=== PATIENT | male | born 1935 | race African-American/Black ===

== ENCOUNTER 2017-01-22 18:00 | Inpatient (IN) | payer OTHER ==
[~2017-01-22] VITALS: Ht 175.3 cm; Wt 55.8 kg
--- NOTE | ~2017-01-22 | HC ---
[facility] [place] [address] CONSULTATION Name: PATRICK GARCES Room #: 445-P ADM IN M.R.#: [id number] Admission: 01/22/17 Attend Phys: Elijah Nunez MD Discharge: Date of : 34 Report #: [id number] THIS REPORT FOR: //name// CC: Elijah Perez REASON FOR CONSULTATION: I was asked to evaluate concerning positive syphilis antibody. HISTORY OF PRESENT ILLNESS: The patient was an 81-year-old who presented with fever, myalgias, arthralgias and worsening mentation. Found to have influenza B. He has had occasional nonproductive cough. Chest x-ray showed left lower lobe infiltrate. Imaging studies of his brain showed no acute stroke. He had further workup of his dementia, B12 was normal, syphilis antibody positive. The patient denies any previous history of syphilis. No history of tuberculosis or HIV. 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 ALLERGIES: None known. MEDICATIONS: As noted on his MAR including Unasyn, Levaquin, Tamiflu. PAST MEDICAL HISTORY, FAMILY HISTORY AND SOCIAL HISTORY: Unchanged from his history and physical, which was reviewed. It is noted that he has had prostate cancer and the patient's family states dementia has been at least a year or so. REVIEW OF SYSTEMS: No nausea, vomiting, diarrhea, dysuria or frequency, rash, decubiti. PHYSICAL EXAMINATION: VITAL SIGNS: Afebrile, hemodynamically stable. GENERAL: He is alert, cooperative and pleasant. He was sitting up in his chair, overall weak. HEENT: Unremarkable. NECK: Supple, no adenopathy. LUNGS: Few crackles in the left base posteriorly. HEART: Regular, without murmur. ABDOMEN: Soft, nontender, no hepatosplenomegaly or mass. EXTREMITIES: Unremarkable. He did have a midline incision to his abdomen from previous ventral hernia repair several years ago. LABORATORY STUDIES: Sodium 144, potassium 3.6, bicarbonate 28, creatinine 1, liver function test normal. Hemoglobin 10.3, white count 5.6, platelet count 123,000. Syphilis antibody positive. RPR was negative. B12 normal. Urinalysis, moderate rbc's. Influenza B antigen positive. Chest x-ray: Left lower lobe patchy infiltrate. MRI scan of the brain, no acute changes. CT scan [address] [address] CONSULTATION Name: PATRICK GARCES Room #: 445-P ADM IN M.R.#: [id number] Admission: 01/22/17 Attend Phys: Elijah Nunez MD Discharge: Date of : 34 Report #: [id number] of his chest, abdomen and pelvis, left lower lobe infiltrate, extensive stool throughout the colon, renal cyst. Bladder diverticulum. IMPRESSION AND PLAN: An 81-year-old with influenza B and left lower lobe infiltrate. Has an ongoing dementia. Syphilis antibody is positive, although RPR is negative. This is either a false positive or previously treated illness. No evidence of syphilis suspected at this time. If any further changes occur, I would agree neurology that CSF examination would be the next test to pursue. Therefore, recommend no specific treatment for the syphilis antibody positive. Complete 5 days of Tamiflu for his influenza. Would be reasonable to switch to Augmentin for possible secondary bacterial pneumonia. <ELECTRONICALLY SIGNED> By: Javi Waddell MD 01/27/172012 1209 1429 Javi Waddell MD /nt
--- NOTE | ~2017-01-22 | EKG ---
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
--- NOTE | ~2017-01-22 | HC ---
[facility] [place] [address] CONSULTATION Name: PATRICK GARCES Room #: 445-P [facility] IN M.R.#: [id number] Admission: 01/22/17 Attend Phys: Elijah Nunez MD Discharge: 01/28/17 Date of : 34 Report #: [id number] THIS REPORT FOR: //name// CC: Elijah Perez HISTORY OF PRESENT ILLNESS: The patient is an 81-year-old male who was admitted with fever up to 102.4 and left-sided weakness. He was noted to have a left lower lobe infiltrate. CT scan showed an old lacunar infarct. He was diagnosed with a community-acquired pneumonia. He was placed on IV antibiotics. He also was noted to have influenza B. The patient was noted to have some dysphagia and is on a mechanical soft diet with nectar thickened liquids. Neurology saw him and he was diagnosed with an encephalopathy due to systemic infection. MRI showed no recent CVA. Family did not desire a lumbar puncture. We are seeing him now regarding rehabilitation issues. PAST MEDICAL HISTORY: Includes a prior CVA with some residual left-sided weakness. He is noted to have some advancing dementia and prostate cancer. HABITS: No history of tobacco or ETOH. SOCIAL HISTORY: Lives in a house with his . Premorbid cane or walker ambulator. One step in. He needed help with dressing. His daughter is noted to live close and comes by in the morning to help repair meals. Other family members come by in the evening to assist. REVIEW OF SYSTEMS: Did not offer any current complaints of chest pain, shortness of breath or abdominal discomfort. PHYSICAL EXAMINATION: GENERAL: An 81-year-old male, small statured and thin, somewhat confused, will follow some basic 1 step commands, definite latency to his responses. Facies appeared to be symmetric. EXTREMITIES: He does have some left-sided weakness, probably a grade 3+/5. Right upper extremity is probably a 3+ to 4-/5. Both lower extremities strength is probably a grade 4-/5. DTRs are trace to 1. I was unable to adequately assess sensation. He is mod assist with sit to stand and did ambulate 75 feet min assist with a front-wheeled walker. ASSESSMENT: An 81-year-old white male with the following problem list: 1. Encephalopathy, thought due to systemic infection. 2. Prior cardiovascular accident with some residual left-sided weakness. 3. Community-acquired pneumonia. 4. Rule out aspiration. He is currently on nectar thickened liquids. 5. Influenza B. 6. History of advancing dementia. 7. Prostate cancer. [address] [address] CONSULTATION Name: PATRICK GARCES Room #: [facility] IN M.R.#: [id number] Admission: 01/22/17 Attend Phys: Elijah Nunez MD Discharge: 01/28/17 Date of : 34 Report #: [id number] PLAN: Note that case management [place] [facility] [place] [facility] for this patient and family has already given their choices of facilities. In my impression, a [place] [facility] [place] stay would be an appropriate discharge plan for this patient. Thank you for asking us to assist in this patient's care. <ELECTRONICALLY SIGNED> By: Honorio Gray MD 01/28/17 1539 1323 1347 Honorio Gray MD /nt
--- NOTE | ~2017-01-22 | HC ---
[facility] [place] [address] CONSULTATION Name: PATRCIK GARCES Room #: 445-P [facility] IN M.R.#: [id number] Admission: 01/22/17 Attend Phys: Elijah Nunez MD Discharge: 01/28/17 Date of : 34 Report #: [id number] THIS REPORT FOR: //name// CC: Elijah Perez DATE OF SERVICE: 01/23/2017 HISTORY OF PRESENT ILLNESS: This is an 81-year-old male patient who was evaluated by me for altered mental status. The family gives a history that it started about 1 week ago. They noticed that he had more weakness on the left side and he was not able to respond very well. He was taken to [facility], but did not think they did much workup. The patient is weak on the baseline in the left side secondary to a stroke in July 2016. He did not get admitted to the hospital that time. This weakness has fluctuated some, but it became worst within last week. He is better today than when he came in. There was associated fever with these episodes, which is also better. There was no headache he complains of. The symptom has come in spontaneously without any trauma, etc. REVIEW OF SYSTEMS: Indicate that he is weak on the left side. He can feed himself, but he needs help with virtually all the other activities of daily living. He has been diagnosed with dementia that predates his history of stroke in July 2016. He does have a history of stroke as summarized above. His mentation is not very good to get a very good history from him, but he does have a history of dementia. He does have a history of hypertension and prostate cancer. I tried to see if he has any new eye, ENT, cardiac, respiratory, GI, , musculoskeletal, constitutional, dermatological, hematological, psychiatric, throat or allergic symptoms along with present symptomatology. I get a good history, but it does not look like he had too many new symptom except for more left-sided weakness and altered mental status. PAST MEDICAL HISTORY: Positive for stroke, but that diagnosis was on the basis of MRI. FAMILY HISTORY: Negative for early age stroke. SOCIAL HISTORY: He lives with his and requires a lot of care. PHYSICAL EXAMINATION: His examination is limited. He opens his eye. He does not know what month or year it is. His memory is severely affected, he is still able to talk, but his memory is affected given his baseline. Cranial nerve examination 2-12 was carried out and it is very difficult to carry out in this patient. The best I can tell, it looks mostly unremarkable, but I certain. He is weak on the left side, but family says moving better. He does not have any meningeal signs. His is a well-developed individual who does not have any [address] [place] [address] CONSULTATION Name: PATRICK GARCES Room #: 445-P [facility] IN M.R.#: [id number] Admission: 01/22/17 Attend Phys: Elijah Nunez MD Discharge: 01/28/17 Date of : 34 Report #: [id number] dysmorphic features of eyes, ears and face. His hearing and vision looks adequate. He does not have any thyroid mass, there does not appear to be any carotid bruit. His heart sounds are unremarkable. He has no edema, cyanosis or jaundice. He does not have pneumonia, but he does look like in too much aspirate distress. Blood pressure is 144/71, respirations 20, pulse is 89, temperature is 99.4, which actually is better. LABORATORY DATA: Indicate a white count of 7.3. His CT scan of the head was done on admission, which showed old stroke. His MRI is pending. IMPRESSION: This patient's clinical presentation is consistent with encephalopathy caused by systemic infection. 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 The possibility of stroke cannot be fully excluded at this stage till the further workup is done. RECOMMENDATION: I discussed the situation with the family. we will await the MRI. I discussed spinal tap with them. Presently, they will not like to proceed with spinal tap and wait to see if the patient becomes better and if he does not then they will reconsider it. We will get an EEG, get TSH, vitamin B12 and review the MRI when it is done assuming he is able to cooperate. Thank you very much for this referral. <ELECTRONICALLY SIGNED> By: Cam Reynolds MD 01/28/17 1926 1308 1513 Cam Reynolds MD /nt
--- NOTE | ~2017-01-22 | EEG ---
[facility] [place] [address] ELECTROENCEPHALOGRAM Name: PATRICK GARCES Room #: 445-P [facility] IN M.R.#: [id number] Admission: 01/22/17 Attend Phys: Elijah Nunez MD Discharge: 01/28/17 Date of : 34 Report #: [id number] THIS REPORT FOR: //name// CC: Elijah Klein Chris DATE OF SERVICE: 01/23/2017 This patient is being evaluated for altered mental status. EEG was done by placing the electrodes by standard 10-20 system of electrode placement. Both referential and sequential montages were used for recording. Background activity in this patient's EEG is about 6-7 Hz and 30 microvolts. It is intermixed with theta range slowing on both sides. The patient went to sleep that is associated with bilaterally symmetrical sleep spindle and vertex sharp waves. Throughout the record, no active epileptiform activity was noticed. IMPRESSION: This patient's EEG demonstrates theta range slowing on both sides. That is a nonspecific abnormality, which can occur with encephalopathy, effect of psychotropic medication, dementia, etc. Clinical correlation is recommended. Thank you very much for this referral. <ELECTRONICALLY SIGNED> By: Cam Reynolds MD 01/28/17 1930 1821 21 Cam Reynolds MD /nt
[2017-01-22 18:02] VITALS: BP 141/82
[2017-01-22] MEDS ORDERED: LASIX 20 MG TAB20 MG PO (18:33)
[2017-01-22] MEDS ORDERED: ARICEPT 5 MG TAB5 MG PO (18:33)
[2017-01-22] MEDS ORDERED: CLARITIN10 MG PO (18:33)
[2017-01-22] MEDS ORDERED: SEROQUEL 25 MG25 MG PO (18:34)
[2017-01-22] MEDS ORDERED: BAYER CHEWABLE81 MG PO (18:34)
[2017-01-22] MEDS ORDERED: NAMENDA 5 MG TAB5 M1 PO (18:34)
[2017-01-22] MEDS ORDERED: NORVASC5 MG PO (18:34)
[2017-01-22 18:53] LABS: ABSOLUTE NEUTROPHILS 7.4 thou/uL (1.4-8.2); BASOPHILS 0.2 % (0.0-2.0); HEMATOCRIT 39.9 % (42.0-52.0); HEMOGLOBIN 13.4 gm/dL (14.0-18.0); LYMPHOCYTES 12.9 % (24.0-44.0); MCH 29.8 pg (26.0-34.0); MCHC 33.6 g/dL (28.0-37.0); MCV 88.7 fL (80.0-100.0); MONOCYTES 9.9 % (1.0-8.0); PLATELET COUNT 150 thou/uL (150-400); RDW 14.4 % (10.5-14.5); WBC 9.6 thou/uL (4.0-11.0)
[2017-01-22 18:54] LABS: MANUAL DIFF NO
[2017-01-22 18:55] LABS: ANION GAP 5 mmol/L (7-16); BUN 19 mg/dL (7-18); CHLORIDE 102 mmol/L (98-107); CO2 27 mmol/L (21-32); CREATININE 1.3 mg/dL (0.6-1.3); GLUCOSE 106 mg/dL (70-99); POTASSIUM 4.6 mmol/L (3.5-5.1); SODIUM 134 mmol/L (136-145)
[2017-01-22 19:06] LABS: ALKALINE PHOSPHATASE 69 U/L (46-116); NT-PRO BRAIN NAT PEPTIDE 509 pg/mL (<300); SGOT 33 U/L (15-37); SGPT 21 U/L (30-65); TOTAL BILIRUBIN 0.5 mg/dL (<0.1-1.0); TOTAL PROTEIN 7.5 g/dL (6.4-8.2); TROPONIN-I < 0.04 ng/mL (<0.04-0.07)
[2017-01-22 19:44] LABS: URINE BILIRUBIN NEGATIVE (Negative); URINE BLOOD 3+ (Negative); URINE COLOR YELLOW; URINE GLUCOSE-RANDOM* NEGATIVE (Negative); URINE KETONES NEGATIVE (Negative); URINE LEUKOCYTES-REFLEX NEGATIVE (Negative); URINE PROTEIN (DIPSTICK) TRACE (Negative)
[2017-01-22 19:50] LABS: SQUAMOUS 0-3 Few /LPF (0-3)
[2017-01-22 19:51] LABS: CASTS None Seen /LPF (None Seen); CRYSTALS None Seen /LPF (None Seen); URINE WBC-REFLEX 0-5 Rare /HPF (0-5)
[2017-01-22 21:23] VITALS: BP 127/61
[2017-01-22 21:45] VITALS: BP 137/67
[2017-01-22 23:20] VITALS: BP 126/66
[2017-01-23 04:53] LABS: HEMATOCRIT 33.7 % (42.0-52.0); MCH 29.4 pg (26.0-34.0); MCHC 32.7 g/dL (28.0-37.0); MCV 89.9 fL (80.0-100.0); RBC 3.75 mil/uL (4.50-6.00); RDW 14.4 % (10.5-14.5); WBC 7.3 thou/uL (4.0-11.0)
[2017-01-23 05:02] LABS: CALCIUM 8.3 mg/dL (8.5-10.1); CREATININE 1.2 mg/dL (0.6-1.3); POTASSIUM 3.5 mmol/L (3.5-5.1)
[2017-01-23 05:08] LABS: HDL CHOLESTEROL 70 mg/dL (>40); TRIGLYCERIDE 36 mg/dL (<150); VLDL 7 mg/dL (<40)
[2017-01-23 05:48] LABS: CHOLESTEROL 151 mg/dL (<200); LDL CHOLESTEROL 74 mg/dL (<100); SERUM ASSESSMENT Clear; TC:HDL 2.2 Ratio (Not establshd)
[2017-01-23 05:54] VITALS: BP 155/78
[2017-01-23 08:00] VITALS: BP 144/71
[2017-01-23 12:00] VITALS: BP 169/85
[2017-01-23 16:00] VITALS: BP 159/78
[2017-01-23 19:08] VITALS: BP 148/87
[2017-01-24 01:05] LABS: GLYCOHEMOGLOBIN (HGB A1C) 5.7 % (4.8-5.6)
[2017-01-24 04:55] VITALS: BP 140/84
[2017-01-24 06:09] LABS: HEMATOCRIT 34.5 % (42.0-52.0); HEMOGLOBIN 11.4 gm/dL (14.0-18.0); MCH 29.1 pg (26.0-34.0); MCHC 32.9 g/dL (28.0-37.0); MCV 88.5 fL (80.0-100.0); PLATELET COUNT 139 thou/uL (150-400); WBC 11.9 thou/uL (4.0-11.0)
[2017-01-24 06:28] LABS: MANUAL DIFF YES
[2017-01-24 06:29] LABS: ALBUMIN 2.4 g/dL (3.4-5.0); CALCIUM 8.7 mg/dL (8.5-10.1); POTASSIUM 3.4 mmol/L (3.5-5.1); TOTAL BILIRUBIN 0.4 mg/dL (<0.1-1.0); TOTAL PROTEIN 6.3 g/dL (6.4-8.2)
[2017-01-24 08:42] LABS: ABSOLUTE NEUTROPHILS 10.1 thou/uL (1.4-8.2); TOTAL CELL COUNT 100
[2017-01-24 08:43] LABS: ANISOCYTOSIS SLIGHT
[2017-01-24 08:44] LABS: OVALOCYTES FEW
[2017-01-24 09:33] VITALS: BP 166/74
[2017-01-24 16:00] VITALS: BP 182/79
[2017-01-25 05:26] VITALS: BP 154/76
[2017-01-25 05:37] LABS: ABSOLUTE NEUTROPHILS 4.1 thou/uL (1.4-8.2); BASOPHILS 0.2 % (0.0-2.0); EOSINOPHILS 0.1 % (0.0-3.0); HEMATOCRIT 30.5 % (42.0-52.0); HEMOGLOBIN 10.3 gm/dL (14.0-18.0); LYMPHOCYTES 14.8 % (24.0-44.0); MCH 29.6 pg (26.0-34.0); MCHC 33.6 g/dL (28.0-37.0); MONOCYTES 10.8 % (1.0-8.0); PLATELET COUNT 123 thou/uL (150-400); POLYS 74.1 % (36.0-66.0); RBC 3.47 mil/uL (4.50-6.00); RDW 14.4 % (10.5-14.5); WBC 5.6 thou/uL (4.0-11.0)
[2017-01-25 05:59] LABS: MANUAL DIFF NO
[2017-01-25 06:07] LABS: CALCIUM 8.2 mg/dL (8.5-10.1)
[2017-01-25 06:12] LABS: POTASSIUM 2.8 mmol/L (3.5-5.1)
[2017-01-25 08:00] VITALS: BP 150/73
[2017-01-25 13:26] VITALS: BP 143/88
[2017-01-25 15:07] VITALS: BP 157/72
[2017-01-25 19:23] VITALS: BP 166/96
[2017-01-25 19:23] LABS: TSH 0.805 uIU/mL (0.358-3.740)
[2017-01-26 04:33] VITALS: BP 168/85
[2017-01-26 07:41] VITALS: BP 168/95
[2017-01-26 12:30] VITALS: BP 136/80
[2017-01-26 15:11] VITALS: BP 133/84
[2017-01-26 19:35] VITALS: BP 134/77
[2017-01-27 05:06] VITALS: BP 186/95
[2017-01-27 08:00] VITALS: BP 175/100
[2017-01-27 12:00] VITALS: BP 144/83
[2017-01-27] MEDS ORDERED: AUGMENTIN 875875 MG PO (12:21)
[2017-01-27] MEDS ORDERED: TAMIFLU30 MG PO (12:21)
[2017-01-27] MEDS ORDERED: DUONEB 2.5-0.5 M3 ML INH (12:21)
[2017-01-27] MEDS ORDERED: LEVAQUIN 500 M500 M1 PO (12:21)
[2017-01-27 16:00] VITALS: BP 149/98
[2017-01-27 20:00] VITALS: BP 161/65
[2017-01-28 03:30] VITALS: BP 142/84
[2017-01-28 05:30] VITALS: BP 164/96
[2017-01-28 08:00] VITALS: BP 146/100
== END 2017-01-28 11:23 | DRG 871 ==
LOC: ER 18:00 → EROBS 20:55 → 4S 20:55
PROVIDERS: Emergency Medicine; Family Medicine; Nurse Practitioner; Nurse Practitioner Family; Psychiatry & Neurology Neuromuscular Medicine
DX: A41.9 Sepsis, unspecified organism (principal); J10.08 Influenza due to other identified influenza virus with other specified pneumonia; G93.40 Encephalopathy, unspecified; E44.1 Mild protein-calorie malnutrition; I69.954 Hemiplegia and hemiparesis following unspecified cerebrovascular disease affecting left non-dominant side; Z68.1 Body mass index [BMI] 19.9 or less, adult; I10 Essential (primary) hypertension; A53.9 Syphilis, unspecified; F03.90 Unspecified dementia, unspecified severity, without behavioral disturbance, psychotic disturbance, mood disturbance, and anxiety; K59.00 Constipation, unspecified; Z79.899 Other long term (current) drug therapy; Z85.46 Personal history of malignant neoplasm of prostate; J11.1 Influenza due to unidentified influenza virus with other respiratory manifestations
CPT/HCPCS: 10100

== ENCOUNTER 2017-02-02 13:18 | Inpatient (IN) | payer OTHER ==
[~2017-02-02] VITALS: Ht 170.2 cm; Wt 61.2 kg
--- NOTE | ~2017-02-02 | EEG ---
[facility] [place] [address] ELECTROENCEPHALOGRAM Name: PATRICK GARCES Room #: 445-P [facility] IN M.R.#: [id number] Admission: 02/02/17 Attend Phys: Mauro Retana Discharge: 02/03/17 Date of : 34 Report #: [id number] THIS REPORT FOR: //name// CC: Mauro Perez The patient is an 81-year-old male with altered mental status and syncope. An EEG is requested for further evaluation. DESCRIPTION: The awake record consists of symmetric moderate amplitude 7 cycle per second posterior dominant rhythm. The awake record is obscured by muscle artifact. Stage I sleep is characterized by attenuation of the background record. Photic stimulation is nonactivating. No clear focal abnormalities or epileptiform discharges are noted. IMPRESSION: This is an abnormal adult awake record because of mild slowing of the posterior dominant rhythm. This is a nonspecific finding and may be seen if the patient is not fully awake or if the patient is encephalopathic or has an underlying dementia. No focal abnormalities or epileptiform discharges are noted. <ELECTRONICALLY SIGNED> By: Ginny Morton DO 02/08/17 1110 1232 1445 Ginny Morton DO /nt
--- NOTE | ~2017-02-02 | EKG ---
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
[~2017-02-02 13:18] MED LIST: ARICEPT 5 MG TAB5 MG PO; AUGMENTIN 875875 MG PO; BAYER CHEWABLE81 MG PO; CLARITIN10 MG PO; DUONEB 2.5-0.5 M3 ML INH; LASIX 20 MG TAB20 MG PO; LEVAQUIN 500 M500 M1 PO; NAMENDA 5 MG TAB5 M1 PO; NORVASC5 MG PO; SEROQUEL 25 MG25 MG PO; TAMIFLU30 MG PO
[2017-02-02 13:19] VITALS: BP 133/79
[2017-02-02 13:51] LABS: ABSOLUTE NEUTROPHILS 6.5 thou/uL (1.4-8.2); BASOPHILS 0.6 % (0.0-2.0); EOSINOPHILS 0.7 % (0.0-3.0); HEMATOCRIT 35.2 % (42.0-52.0); HEMOGLOBIN 11.6 gm/dL (14.0-18.0); LYMPHOCYTES 12.9 % (24.0-44.0); MCH 28.9 pg (26.0-34.0); MCHC 32.9 g/dL (28.0-37.0); MCV 87.6 fL (80.0-100.0); MONOCYTES 7.4 % (1.0-8.0); PLATELET COUNT 388 thou/uL (150-400); POLYS 78.4 % (36.0-66.0); RBC 4.02 mil/uL (4.50-6.00); RDW 14.1 % (10.5-14.5); WBC 8.3 thou/uL (4.0-11.0)
[2017-02-02 13:53] LABS: MANUAL DIFF NO
[2017-02-02 13:57] LABS: CALCIUM 9.5 mg/dL (8.5-10.1); CREATININE 1.2 mg/dL (0.6-1.3); POTASSIUM 3.6 mmol/L (3.5-5.1)
[2017-02-02 14:38] LABS: URINE BILIRUBIN NEGATIVE (Negative); URINE BLOOD NEGATIVE (Negative); URINE COLOR YELLOW; URINE GLUCOSE-RANDOM* NEGATIVE (Negative); URINE KETONES NEGATIVE (Negative); URINE LEUKOCYTES-REFLEX NEGATIVE (Negative); URINE PROTEIN (DIPSTICK) NEGATIVE (Negative); URINE UROBILINOGEN 0.2 E.U./dl (0.2-1.0)
[2017-02-02 15:20] LABS: ABG SAMPLE TYPE ARTERIAL; BE(vivo) 1.8 mmol/L (-2 to +3); LACTATE 0.83 mmol/L (0.5-2.0); O2(CT) 16.2 mL/dL (15.0-23.0); O2Hb 93.4 % (92.0-98.0); PCO2 39.3 mmHg (35.0-45.0); PO2 73.2 mmHg (80.0-100.0); STICK SITE R.RADIAL; pH 7.439 (7.360-7.450); sO2 95.2 % (92.0-98.0); tCO2 27.2 mmol/L (24.0-30.0)
[2017-02-02 16:51] VITALS: BP 150/95
[2017-02-03 08:00] VITALS: BP 167/109
[2017-02-03] MEDS ORDERED: SEROQUEL 25 MG25 M1 PO (10:45)
[2017-02-03 16:00] VITALS: BP 143/87
== END 2017-02-03 18:29 | DRG 316 ==
LOC: ER 13:18 → EROBS 14:55 → 4S 14:55
PROVIDERS: Emergency Medicine
DX: I95.9 Hypotension, unspecified (principal); E86.0 Dehydration; I10 Essential (primary) hypertension; F03.90 Unspecified dementia, unspecified severity, without behavioral disturbance, psychotic disturbance, mood disturbance, and anxiety; Z86.73 Personal history of transient ischemic attack (TIA), and cerebral infarction without residual deficits; Z85.46 Personal history of malignant neoplasm of prostate; Z79.82 Long term (current) use of aspirin; Z79.899 Other long term (current) drug therapy
CPT/HCPCS: 10100

== ENCOUNTER 2017-02-04 11:06 | Emergency (ER) | payer OTHER ==
[~2017-02-04] VITALS: Ht 182.9 cm; Wt 65.8 kg
[~2017-02-04 11:06] MED LIST changes: +SEROQUEL 25 MG25 M1 PO
[2017-02-04 11:24] LABS: ABSOLUTE NEUTROPHILS 7.6 thou/uL (1.4-8.2); BASOPHILS 0.5 % (0.0-2.0); EOSINOPHILS 0.8 % (0.0-3.0); HEMOGLOBIN 11.5 gm/dL (14.0-18.0); MCH 28.9 pg (26.0-34.0); MCHC 32.8 g/dL (28.0-37.0); MCV 88.1 fL (80.0-100.0); MONOCYTES 7.8 % (1.0-8.0); PLATELET COUNT 411 thou/uL (150-400); POLYS 77.9 % (36.0-66.0); RBC 3.97 mil/uL (4.50-6.00); RDW 14.1 % (10.5-14.5); WBC 9.8 thou/uL (4.0-11.0)
[2017-02-04 11:28] LABS: MANUAL DIFF NO
[2017-02-04 11:35] LABS: CALCIUM 9.3 mg/dL (8.5-10.1); CREATININE 1.1 mg/dL (0.6-1.3); POTASSIUM 3.6 mmol/L (3.5-5.1)
[2017-02-04 12:48] LABS: URINE BILIRUBIN NEGATIVE (Negative); URINE BLOOD 2+ (Negative); URINE COLOR YELLOW; URINE GLUCOSE-RANDOM* NEGATIVE (Negative); URINE KETONES NEGATIVE (Negative); URINE NITRITE NEGATIVE (Negative); URINE PROTEIN (DIPSTICK) TRACE (Negative); URINE SPECIFIC GRAVITY 1.025 (1.003-1.035); URINE UROBILINOGEN 0.2 E.U./dl (0.2-1.0)
[2017-02-04 13:08] LABS: CASTS None Seen /LPF (None Seen); CRYSTALS None Seen /LPF (None Seen); SQUAMOUS 0-3 Few /LPF (0-3)
[2017-02-04 13:09] LABS: BACTERIA 1-9 Few /HPF (None Seen); URINE WBC 0-5 Rare /HPF (0-5)
== END 2017-02-04 12:39 | disposition home or self-care (01) ==
LOC: ER 11:06
PROVIDERS: Nurse Practitioner
DX: S09.90XA Unspecified injury of head, initial encounter (principal); I63.9 Cerebral infarction, unspecified; I10 Essential (primary) hypertension; F03.90 Unspecified dementia, unspecified severity, without behavioral disturbance, psychotic disturbance, mood disturbance, and anxiety; Z85.46 Personal history of malignant neoplasm of prostate; W06.XXXA Fall from bed, initial encounter; Y93.89 Activity, other specified; Y92.89 Other specified places as the place of occurrence of the external cause; Y99.9 Unspecified external cause status

== ENCOUNTER 2017-02-22 21:15 | Emergency (ER) | payer OTHER ==
[~2017-02-22] VITALS: Ht 172.7 cm; Wt 58.1 kg
[2017-02-22 21:45] LABS: URINE BILIRUBIN NEGATIVE (Negative); URINE BLOOD 3+ (Negative); URINE COLOR YELLOW; URINE GLUCOSE-RANDOM* NEGATIVE (Negative); URINE KETONES NEGATIVE (Negative); URINE LEUKOCYTES-REFLEX NEGATIVE (Negative); URINE PROTEIN (DIPSTICK) NEGATIVE (Negative)
[2017-02-22 21:52] LABS: ABSOLUTE NEUTROPHILS 3.8 thou/uL (1.4-8.2); BASOPHILS 0.6 % (0.0-2.0); EOSINOPHILS 7.1 % (0.0-3.0); HEMOGLOBIN 11.3 gm/dL (14.0-18.0); LYMPHOCYTES 23.8 % (24.0-44.0); MCH 29.5 pg (26.0-34.0); MCHC 33.1 g/dL (28.0-37.0); MCV 89.2 fL (80.0-100.0); MONOCYTES 9.3 % (1.0-8.0); PLATELET COUNT 185 thou/uL (150-400); POLYS 59.2 % (36.0-66.0); RBC 3.81 mil/uL (4.50-6.00); RDW 14.4 % (10.5-14.5); WBC 6.4 thou/uL (4.0-11.0)
[2017-02-22 21:53] LABS: MANUAL DIFF NO
[2017-02-22 21:55] LABS: CASTS None Seen /LPF (None Seen); SQUAMOUS None Seen /LPF (0-3)
[2017-02-22] MEDS ORDERED: SINEMET 10-1001 EAC1 PO (21:55)
[2017-02-22 21:58] LABS: URINE WBC-REFLEX None Seen /HPF (0-5)
[2017-02-22 21:59] LABS: CRYSTALS None Seen /LPF (None Seen); HYALINE CASTS 0-3 Few /LPF (None Seen); TRANSITIONAL EPITHEL CELL 4-10 Moderate /LPF (None Seen)
[2017-02-22 22:08] LABS: CALCIUM 8.7 mg/dL (8.5-10.1); CREATININE 1.2 mg/dL (0.7-1.3); POTASSIUM 3.9 mmol/L (3.5-5.1)
[2017-02-22 22:13] LABS: ALBUMIN 2.7 g/dL (3.4-5.0); TOTAL BILIRUBIN 0.3 mg/dL (<0.1-1.0); TOTAL PROTEIN 6.6 g/dL (6.4-8.2)
[2017-02-22 22:22] LABS: APTT 24.7 Seconds (24.5-32.8); INR 1.1; PROTIME 11.1 Seconds (9.3-11.4)
== END 2017-02-22 23:30 | disposition home or self-care (01) ==
LOC: ER 21:15
PROVIDERS: Emergency Medicine
DX: R31.9 Hematuria, unspecified (principal); K59.00 Constipation, unspecified; K64.9 Unspecified hemorrhoids; I10 Essential (primary) hypertension; F03.90 Unspecified dementia, unspecified severity, without behavioral disturbance, psychotic disturbance, mood disturbance, and anxiety; Z85.46 Personal history of malignant neoplasm of prostate; Z86.73 Personal history of transient ischemic attack (TIA), and cerebral infarction without residual deficits